=== PATIENT | female | born 1975 | race Two or more races ===

== ENCOUNTER 2019-02-04 09:54 | Emergency (ER) | payer SELFPAY ==
[2019-02-04] MEDS ORDERED: Ondansetron 4 MG/2 ML SDV IVPUSH ONE (10:31)
[2019-02-04] MEDS ORDERED: Sodium Chloride 0.9% 10 ML Syringe FLUSH PRN (10:31)
[2019-02-04] MEDS ORDERED: HYDROmorphone 1 MG/ML Syringe IVPUSH ONE ×2 (10:31→13:48)
[2019-02-04] MEDS ORDERED: Sodium Chloride 0.9% 1,000 ML IV ONE ×2 (10:31→17:14)
--- NOTE | 2019-02-04 10:33 | EDM.PDOC ---
ED HPI GENERAL MEDICAL PROBLEM - General Chief Complaint: Flank Pain Stated Complaint: KIDNEY PAIN Time Seen by Provider: 02/04/19 10:13 Source of Information: Reports: Patient, Family (son) History Limitations: Reports: Language Barrier - History of Present Illness INITIAL COMMENTS - FREE TEXT/NARRATIVE: 43-year-old female presents for evaluation and treatment of right-sided flank, back and abdominal pain. Patient primarily speaks Romansh, translation provided by her son. Current symptoms include low back pain, right-sided flank pain and right lower quadrant abdominal pain. She reports fevers, chills, nausea and hematuria. Denies any vomiting, dysuria. Reportedly the patient has a history of kidney infections and kidney stones. She did take a course 250 mg of ciprofloxacin, that she had at home from [place] last week. Right Flank Pain Score (Numeric/FACES): 8 - Related Data Allergies Allergy/AdvReac Type Severity Reaction Status Date / Time ceftriaxone [From Rocephin] Allergy Itching Verified 02/04/19 17:49 Home Meds: Home Meds Levothyroxine Sodium [Synthroid] 1 tab PO DAILY 02/04/19 [History] Past Medical History Genitourinary History: Reports: Renal Calculus Endocrine/Metabolic History: Reports: Hypothyroidism Social & Family History - Tobacco Use Smoking Status *Q: Never Smoker Second Hand Smoke Exposure: No - Caffeine Use Caffeine Use: Reports: None - Recreational Drug Use Recreational Drug Use: No ED ROS GENERAL - Review of Systems Review Of Systems: See Below Constitutional: Reports: Fever, Chills GI/Abdominal: Reports: Abdominal Pain, Nausea : Reports: Flank Pain Musculoskeletal: Reports: Back Pain ED EXAM, RENAL/ - Physical Exam Exam: See Below Exam Limited By: No Limitations General Appearance: Alert, WD/WN, Mild Distress Respiratory/Chest: No Respiratory Distress, Lungs Clear, Normal Breath Sounds Cardiovascular: Normal Peripheral Pulses, Regular Rate, Rhythm, No Murmur GI/Abdominal: Normal Bowel Sounds, Soft, Tender (Right midabdomen) Back Exam: CVA Tenderness (R) Neurological: Alert, Normal Cognition Psychiatric: Normal Affect, Normal Mood Skin Exam: Warm, Dry, Normal Color Course - Vital Signs Last Recorded V/S: Last Vital Signs Temp 99.5 F 02/04/19 16:16 Pulse 101 H 02/04/19 10:10 Resp 18 02/04/19 10:10 BP 123/80 02/04/19 17:07 Pulse Ox 98 02/04/19 10:10 - Orders/Labs/Meds Labs: Laboratory Tests 02/04/19 02/04/19 02/04/19 Range/Units 10:16 10:16 10:48 WBC 9.78 (3.98-10.04) K/mm3 RBC 4.34 (3.98-5.22) M/mm3 Hgb 13.3 (11.2-15.7) gm/L Hct 39.4 (34.1-44.9) % MCV 90.8 (79.4-94.8) fl MCH 30.6 (25.6-32.2) pg MCHC 33.8 (32.2-35.5) g/dl RDW Std Deviation 43.4 (36.4-46.3) fL Plt Count 219 (182-369) K/mm3 MPV 10.0 (9.4-12.3) fl Neutrophils % (Manual) 79 H (40-60) % Band Neutrophils % 0 (0-10) % Lymphocytes % (Manual) 13 L (20-40) % Atypical Lymphs % 0 % Monocytes % (Manual) 8 (2-10) % Eosinophils % (Manual) 0 L (0.7-5.8) % Basophils % (Manual) 0 L (0.1-1.2) Platelet Estimate Adequate RBC Morph Comment Normal Sodium (136-145) mEq/L Potassium (3.5-5.1) mEq/L Chloride (98-107) mEq/L Carbon Dioxide (21-32) mEq/L Anion Gap (5-15) BUN (7-18) mg/dL Creatinine (0.55-1.02) mg/dL Est Cr Clr Drug Dosing mL/min Estimated GFR (MDRD) (>60) mL/min BUN/Creatinine Ratio (14-18) Glucose (74-106) mg/dL Calcium (8.5-10.1) mg/dL Total Bilirubin (0.2-1.0) mg/dL AST (15-37) U/L ALT (14-59) U/L Alkaline Phosphatase (46-116) U/L C-Reactive Protein (<1.0) mg/dL Total Protein (6.4-8.2) g/dl Albumin (3.4-5.0) g/dl Globulin gm/dL Albumin/Globulin Ratio (1-2) Urine Color Yellow (Yellow) Urine Appearance Slt cloudy H (Clear) Urine pH 6.0 (5.0-8.0) Ur Specific [place] 1.015 (1.005-1.030) Urine Protein Trace H (Negative) Urine Glucose (UA) Negative (Negative) Urine Ketones Negative (Negative) Urine Occult Blood 2+ H (Negative) Urine Nitrite Positive H (Negative) Urine Bilirubin Negative (Negative) Urine Urobilinogen 0.2 (0.2-1.0) Ur Leukocyte Esterase 1+ H (Negative) Urine RBC 30-40 H (0-5) /hpf Urine WBC 30-40 H (0-5) /hpf Ur Epithelial Cells 0-5 (0-5) /hpf Urine Bacteria Many H (FEW) /hpf Urine Mucus Moderate H (FEW) /hpf Urine HCG, Qual Negative (NEGATIVE) C trachomatis DNA (PCR) N gonorrhoeae DNA (PCR) 02/04/19 02/04/19 Range/Units 10:48 14:00 WBC (3.98-10.04) K/mm3 RBC (3.98-5.22) M/mm3 Hgb (11.2-15.7) gm/L Hct (34.1-44.9) % MCV (79.4-94.8) fl MCH (25.6-32.2) pg MCHC (32.2-35.5) g/dl RDW Std Deviation (36.4-46.3) fL Plt Count (182-369) K/mm3 MPV (9.4-12.3) fl Neutrophils % (Manual) (40-60) % Band Neutrophils % (0-10) % Lymphocytes % (Manual) (20-40) % Atypical Lymphs % % Monocytes % (Manual) (2-10) % Eosinophils % (Manual) (0.7-5.8) % Basophils % (Manual) (0.1-1.2) Platelet Estimate RBC Morph Comment Sodium 137 (136-145) mEq/L Potassium 3.9 (3.5-5.1) mEq/L Chloride 102 (98-107) mEq/L Carbon Dioxide 25 (21-32) mEq/L Anion Gap 13.9 (5-15) BUN 14 (7-18) mg/dL Creatinine 0.8 (0.55-1.02) mg/dL Est Cr Clr Drug Dosing 67.01 mL/min Estimated GFR (MDRD) > 60 (>60) mL/min BUN/Creatinine Ratio 17.5 (14-18) Glucose 100 (74-106) mg/dL Calcium 8.7 (8.5-10.1) mg/dL Total Bilirubin 0.4 (0.2-1.0) mg/dL AST 16 (15-37) U/L ALT 31 (14-59) U/L Alkaline Phosphatase 64 (46-116) U/L C-Reactive Protein 13.7 H* (<1.0) mg/dL Total Protein 7.9 (6.4-8.2) g/dl Albumin 3.4 (3.4-5.0) g/dl Globulin 4.5 gm/dL Albumin/Globulin Ratio 0.8 L (1-2) Urine Color (Yellow) Urine Appearance (Clear) Urine pH (5.0-8.0) Ur Specific [place] (1.005-1.030) Urine Protein (Negative) Urine Glucose (UA) (Negative) Urine Ketones (Negative) Urine Occult Blood (Negative) Urine Nitrite (Negative) Urine Bilirubin (Negative) Urine Urobilinogen (0.2-1.0) Ur Leukocyte Esterase (Negative) Urine RBC (0-5) /hpf Urine WBC (0-5) /hpf Ur Epithelial Cells (0-5) /hpf Urine Bacteria (FEW) /hpf Urine Mucus (FEW) /hpf Urine HCG, Qual (NEGATIVE) C trachomatis DNA (PCR) Not detected N gonorrhoeae DNA (PCR) Not detected Meds: Medications Discontinued Medications Generic Name Dose Route Start Last Admin Trade Name Freq PRN Reason Stop Dose Admin Acetaminophen 650 mg 02/04/19 14:28 02/04/19 14:31 Tylenol PO 02/04/19 14:29 650 mg NOW ONE Administration Diphenhydramine HCl 50 mg 02/04/19 17:13 02/04/19 17:19 Benadryl IVPUSH 02/04/19 17:14 50 mg ONETIME ONE Administration Doxycycline Hyclate 200 mg 02/04/19 17:38 Vibramycin PO 02/04/19 17:39 ONETIME ONE Famotidine 20 mg 02/04/19 17:13 02/04/19 17:22 Pepcid IVPUSH 02/04/19 17:14 20 mg ONETIME ONE Administration Hydromorphone HCl 1 mg 02/04/19 10:31 02/04/19 10:50 Dilaudid IVPUSH 02/04/19 10:32 1 mg ONETIME ONE Administration Hydromorphone HCl 1 mg 02/04/19 13:48 02/04/19 13:59 Dilaudid IVPUSH 02/04/19 13:49 1 mg ONETIME ONE Administration Sodium Chloride 1,000 mls @ 999 mls/hr 02/04/19 10:31 02/04/19 10:49 Normal Saline IV 02/04/19 11:31 999 mls/hr ONETIME ONE Administration Ceftriaxone Sodium 2 gm/ 100 mls @ 200 mls/hr 02/04/19 16:45 02/04/19 17:06 Sodium Chloride IV Not Given Q24H ZABRINA Ceftriaxone Sodium 2 gm/ 100 mls @ 200 mls/hr 02/04/19 17:02 02/04/19 17:04 Sodium Chloride IV 02/04/19 17:31 200 mls/hr NOW STA Administration Sodium Chloride 1,000 mls @ 999 mls/hr 02/04/19 17:14 02/04/19 17:28 Normal Saline IV 02/04/19 18:14 999 mls/hr ONETIME ONE Administration Ketorolac Tromethamine 30 mg 02/04/19 17:13 02/04/19 17:25 Toradol IVPUSH 02/04/19 17:14 30 mg ONETIME ONE Administration Methylprednisolone Sodium Succinate 125 mg 02/04/19 17:14 02/04/19 17:20 Solu-Medrol IVPUSH 02/04/19 17:15 125 mg ONETIME ONE Administration Ondansetron HCl 4 mg 02/04/19 10:31 02/04/19 10:50 Zofran IVPUSH 02/04/19 10:32 4 mg ONETIME ONE Administration Sodium Chloride 10 ml 02/04/19 10:31 02/04/19 10:51 Saline Flush FLUSH 10 ml ASDIRECTED PRN Administration Keep Vein Open - Radiology Interpretation Free Text/Narrative:: CT of the abdomen and plevis impression with contrast impression per vrad: Fat stranding is noted in the right adnexal recently may be secondary to inflammatory changes. Further evaluation is recommended with pelvic ultrasound. Fat filled umbilical hernia is present. Small amount of fluid is noted within the pelvis. Multiple calcified gallstones are present. 4.2 partially calcified cyst left adnexal region. Transvaginal ultrasound impression per Vrad: bilateral ovarian cyst. No intrauterine masses. Blood flow is noted to both ovaries bilaterally. Free fluid is is noted in cul-de-sac. - Re-Assessments/Exams Free Text/Narrative Re-Assessment/Exam: 02/04/19 17:[address] were initially obtained, due to the inflammatory changes around the right adnexa pelvic ultrasound was then obtained. 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 He did not feel there anything more than a complicated Urinary tract infection going on. Recommended considering doxycycline to also cover for PID. I did give the patient some Rocephin but she immediately started to feel i and reported she felt as if her throat was swelling. She was given Solu-Medrol, Benadry and Pepcid. The Rocephin was stopped. Her symptoms resolved after a few minutes with these medications in the Rocephin stopped. We will put her on Doxycycline. Should cover for urinary tract infection as well as for PID. Departure - Departure Time of Disposition: 17:58 Disposition: Home, Self-Care 01 Condition: Fair Clinical Impression: UTI, Urinary tract infectious disease - Discharge Information *PRESCRIPTION DRUG MONITORING PROGRAM REVIEWED*: No *COPY OF PRESCRIPTION DRUG MONITORING REPORT IN PATIENT NASEEM: No Instructions: Urinary Tract Infection, Adult Referrals: Camryn Virk PA-C [Primary Care Provider] - Forms: ED Department Discharge Additional Instructions: You had a reaction to rocephin (ceftriaxone) today in the ER. May take benadryl 25 - 50mg PO every 6 hours as needed for itchiness and hives. Take the doxycycline as prescribed. 1 Twice a day for 14 days. [id number] ibuprofen as needed for pain. Do not take more than 3200 mg of ibuprofen from all sources in 1 day, 600-800mg PO every 6-8 hours. For pain not relieved by ibuprofen you may take [place] one or 2 tabs every 4-6 hours. [place] is habit-forming, take as few of these as needed to control your pain. Do not drive or operate machinery within 12 hours of taking [place]. There is tylenol in [place]. Make sure you are drinking plenty of fluids. Follow-up with Camryn virk on Wednesday or Wednesday of this week for recheck of your symptoms. Please return to the ER for symptoms change or worsen.
[2019-02-04] MEDS ORDERED: Acetaminophen 325 MG Tab PO ONE (14:28)
[2019-02-04 15:42] LABS: C. TRACHOMATIS BY PCR NOT DETECTED; N. GONORRHOEAE BY PCR NOT DETECTED
[2019-02-04] MEDS ORDERED: cefTRIAXone 2 GM in Sodium Chloride 0.9% 100 ML IV SCH (16:45)
[2019-02-04] MEDS ORDERED: cefTRIAXone 2 GM in Sodium Chloride 0.9% 100 ML IV STA (17:02)
[2019-02-04] MEDS ORDERED: Ketorolac 30 MG/ML SDV IVPUSH ONE (17:13)
[2019-02-04] MEDS ORDERED: diphenhydrAMINE 50 MG/ML SDV IVPUSH ONE (17:13)
[2019-02-04] MEDS ORDERED: Famotidine 20 MG/2 ML SDV IVPUSH ONE (17:13)
[2019-02-04] MEDS ORDERED: methylPREDNISolone Sodium Succinate 125 MG/2 ML SDV IVPUSH ONE (17:14)
[2019-02-04] MEDS ORDERED: Doxycycline 100 MG Cap PO ONE (17:38)
--- NOTE | 2019-02-07 08:09 | CT ---
CT abdomen and pelvis Technique: Multiple axial sections were obtained from above the dome of the diaphragm inferiorly through the pubic symphysis. Intravenous contrast and oral contrast not given. Comparison: No prior abdominal imaging. Findings: Lung bases show mild fibrosis and scarring. Noncontrast appearance of the liver and spleen appears within normal limits. Adrenal glands show no nodule. Gallbladder contains at least two gallstones. Kidneys show no abnormal calcifications. No ureteral dilatation or ureteral stone is seen. Pancreas appears within normal limits. Aorta shows no aneurysm. No retroperitoneal adenopathy is seen. No mesenteric abnormalities are seen. Appendix is not definitely visualized. Cyst is noted within the left ovary containing a small wall calcification. This cyst measures 4.7 cm in size and has simple fluid Hounsfield unit measurements. No free fluid or inflammatory change is seen. Bone window settings were reviewed which appear within normal limits for the patient's age. Incidental note of fat-containing umbilical hernia. Impression: 1. At least two gallstones. 2. 4.7 cm simple cyst within the left ovary. 3. No renal calculi, ureteral dilatation or ureteral stone is seen. 4. Other incidental findings. Diagnostic code #3 I agree with preliminary report from [facility], finalized on 02/04/19, 1:57 PM Central Time
--- NOTE | 2019-02-07 09:03 | US ---
Pelvic ultrasound: Multiple real-time images were obtained transvaginally. Comparison: Previous CT abdomen and pelvis study performed earlier on same day (11:53 AM). Cyst is noted within the left ovary measuring 3.8 x 4.0 x 4.2 cm. Small physiologic cyst measuring 1.6 cm seen within the right ovary. Minimal free fluid is seen within the cul-de-sac believed to be physiologic. Uterus is retroverted. No myometrial abnormality is seen. Endometrial thickness is normal at 1.2 cm. Measurements: Uterus: Length 8.5 cm, AP height 5.3 cm, transverse width 5.6 cm Right ovary: 3.1 x 2.6 x 3.4 cm Left ovary: 4.6 x 4.5 x 4.5 cm Impression: 1. Simple cyst within the left ovary measuring up to 4.2 cm. This correlates to cyst seen on recent CT exam. Follow-up pelvic ultrasound could be considered in 3-4 months to evaluate for resolution. 2. Other incidental findings as noted above. Diagnostic code #3 I agree with preliminary report from [facility], finalized on 02/04/19, 5:05 PM Central Time
== END 2019-02-04 18:15 | disposition home or self-care (01) ==
LOC: JD.ED 09:54
DX: N39.0 Urinary tract infection, site not specified (principal); E03.9 Hypothyroidism, unspecified; Z79.899 Other long term (current) drug therapy; Z88.1 Allergy status to other antibiotic agents
CPT/HCPCS: 36415; 74176; 76830; 80053; 81001; 81025; 85007; 85027; 86140; 87086; 87088; 87186; 87491; 87591; 96361; 96374; 96375; 96376; 99284; A9270; J0696; J1170; J1200; J1885; J2405; J2930; J3490; J7030; J7040; 99283

== ENCOUNTER 2020-09-23 18:18 | Emergency (ER) | payer BC ==
--- NOTE | 2020-09-23 18:48 | EDM.PDOC ---
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 This started yesterday. She has no vagina l bleeding. She has no pain with urination. She has no abdominal pain, nausea, vomiting, fever, chills, cough, chest pain, shortness of breath or diarrhea. She has no medical problems. She has no flank pain. She does not smoke and she is not around any diesel full. Onset: Gradual Duration: Day(s): (Yesterday) Improves with: Reports: None Worsens with: Reports: None Associated Symptoms: Reports: No Other Symptoms - Related Data Allergies Allergy/AdvReac Type Severity Reaction Status Date / Time ceftriaxone [From Rocephin] Allergy Severe Itching Verified 09/23/20 18:51 Home Meds: Home Meds Levothyroxine [Synthroid] 100 mcg PO ACBREAKFAST 09/23/20 [History] Nitrofurantoin Monohyd/M-Cryst [Macrobid 100 mg Capsule] 100 mg PO BID #10 capsule 09/23/20 [Rx] ED ROS GENERAL - Review of Systems Review Of Systems: See Below Constitutional: Reports: No Symptoms HEENT: Reports: No Symptoms Respiratory: Reports: No Symptoms Cardiovascular: Reports: No Symptoms Endocrine: Reports: No Symptoms GI/Abdominal: Reports: No Symptoms : Reports: Hematuria. Denies: Dysuria, Flank Pain, Frequency ED EXAM, RENAL/ - Physical Exam Exam: See Below Exam Limited By: No Limitations General Appearance: Alert, No Apparent Distress Ears: Normal External Exam Nose: Normal Inspection Head: Atraumatic, Normocephalic Neck: Normal Inspection Respiratory/Chest: No Respiratory Distress, Lungs Clear, Normal Breath Sounds Cardiovascular: Regular Rate, Rhythm, No Edema, No Murmur GI/Abdominal: Soft, Non-Tender, No Organomegaly, No Mass Back Exam: Normal Inspection Extremities: Normal Inspection Course - Vital Signs Last Recorded V/S: Last Vital Signs Temp 98.2 F 09/23/20 18:33 Pulse 90 09/23/20 18:33 Resp 16 09/23/20 18:33 BP 134/100 H 09/23/20 18:33 Pulse Ox 97 09/23/20 18:33 - Orders/Labs/Meds Orders: Active Orders 24 hr Category Date Time Status CULTURE URINE [RM] Stat Lab 09/23/20 18:50 Received Labs: Laboratory Tests 09/23/20 09/23/20 09/23/20 Range/Units 18:50 18:54 18:54 WBC 9.35 (3.98-10.04) K/mm3 RBC 4.53 (3.98-5.22) M/mm3 Hgb 14.1 (11.2-15.7) gm/dl Hct 42.1 (34.1-44.9) % MCV 92.9 (79.4-94.8) fl MCH 31.1 (25.6-32.2) pg MCHC 33.5 (32.2-35.5) g/dl RDW Std Deviation 43.3 (36.4-46.3) fL Plt Count 265 (182-369) K/mm3 MPV 10.3 (9.4-12.3) fl Neut % (Auto) 59.1 (34.0-71.1) % Lymph % (Auto) 32.3 (19.3-51.7) % [place] % (Auto) 6.2 (4.7-12.5) % Eos % (Auto) 2.1 (0.7-5.8) Baso % (Auto) 0.2 (0.1-1.2) % Neut # (Auto) 5.52 (1.56-6.13) K/mm3 Lymph # (Auto) 3.02 (1.18-3.74) K/mm3 [place] # (Auto) 0.58 H (0.24-0.36) K/mm3 Eos # (Auto) 0.20 (0.04-0.36) K/mm3 Baso # (Auto) 0.02 (0.01-0.08) K/mm3 PT 10.5 (9.7-12.0) SECONDS INR 0.98 APTT 25.9 (21.7-31.4) SECONDS D-Dimer, Quantitative 0.25 (0.19-0.50) mg/L Sodium (136-145) mEq/L Potassium (3.5-5.1) mEq/L Chloride (98-107) mEq/L Carbon Dioxide (21-32) mEq/L Anion Gap (5-15) BUN (7-18) mg/dL Creatinine (0.55-1.02) mg/dL Est Cr Clr Drug Dosing Estimated GFR (MDRD) (>60) mL/min BUN/Creatinine Ratio (14-18) Glucose (74-106) mg/dL Calcium (8.5-10.1) mg/dL Total Bilirubin (0.2-1.0) mg/dL AST (15-37) U/L ALT (14-59) U/L Alkaline Phosphatase (46-116) U/L Total Protein (6.4-8.2) g/dl Albumin (3.4-5.0) g/dl Globulin gm/dL Albumin/Globulin Ratio (1-2) HCG, Qual (NEGATIVE) Urine Color [place] (Yellow) Urine Appearance Slt cloudy H (Clear) Urine pH 8.0 (5.0-8.0) Ur Specific [place] 1.025 (1.005-1.030) Urine Protein 1+ H (Negative) Urine Glucose (UA) Negative (Negative) Urine Ketones Negative (Negative) Urine Occult Blood 3+ H (Negative) Urine Nitrite Positive H (Negative) Urine Bilirubin Negative (Negative) Urine Urobilinogen 1.0 (0.2-1.0) Ur Leukocyte Esterase Trace H (Negative) Urine RBC >100 H (0-5) /hpf Urine WBC 5-10 H (0-5) /hpf Ur Squamous Epith Cells 0-5 (0-5) /hpf Urine Bacteria Many H (FEW) /hpf Urine Mucus Not seen (FEW) /hpf 09/23/20 09/23/20 Range/Units 18:54 18:54 WBC (3.98-10.04) K/mm3 RBC (3.98-5.22) M/mm3 Hgb (11.2-15.7) gm/dl Hct (34.1-44.9) % MCV (79.4-94.8) fl MCH (25.6-32.2) pg MCHC (32.2-35.5) g/dl RDW Std Deviation (36.4-46.3) fL Plt Count (182-369) K/mm3 MPV (9.4-12.3) fl Neut % (Auto) (34.0-71.1) % Lymph % (Auto) (19.3-51.7) % [place] % (Auto) (4.7-12.5) % Eos % (Auto) (0.7-5.8) Baso % (Auto) (0.1-1.2) % Neut # (Auto) (1.56-6.13) K/mm3 Lymph # (Auto) (1.18-3.74) K/mm3 [place] # (Auto) (0.24-0.36) K/mm3 Eos # (Auto) (0.04-0.36) K/mm3 Baso # (Auto) (0.01-0.08) K/mm3 PT (9.7-12.0) SECONDS INR APTT (21.7-31.4) SECONDS D-Dimer, Quantitative (0.19-0.50) mg/L Sodium 140 (136-145) mEq/L Potassium 3.9 (3.5-5.1) mEq/L Chloride 103 (98-107) mEq/L Carbon Dioxide 29 (21-32) mEq/L Anion Gap 11.9 (5-15) BUN 14 (7-18) mg/dL Creatinine 0.7 (0.55-1.02) mg/dL Est Cr Clr Drug Dosing TNP Estimated GFR (MDRD) > 60 (>60) mL/min BUN/Creatinine Ratio 20.0 H (14-18) Glucose 117 H (74-106) mg/dL Calcium 9.2 (8.5-10.1) mg/dL Total Bilirubin 0.2 (0.2-1.0) mg/dL AST 12 L (15-37) U/L ALT 21 (14-59) U/L Alkaline Phosphatase 64 (46-116) U/L Total Protein 8.4 H (6.4-8.2) g/dl Albumin 4.1 (3.4-5.0) g/dl Globulin 4.3 gm/dL Albumin/Globulin Ratio 1.0 (1-2) HCG, Qual Negative (NEGATIVE) Urine Color (Yellow) Urine Appearance (Clear) Urine pH (5.0-8.0) Ur Specific [place] (1.005-1.030) Urine Protein (Negative) Urine Glucose (UA) (Negative) Urine Ketones (Negative) Urine Occult Blood (Negative) Urine Nitrite (Negative) Urine Bilirubin (Negative) Urine Urobilinogen (0.2-1.0) Ur Leukocyte Esterase (Negative) Urine RBC (0-5) /hpf Urine WBC (0-5) /hpf Ur Squamous Epith Cells (0-5) /hpf Urine Bacteria (FEW) /hpf Urine Mucus (FEW) /hpf - Re-Assessments/Exams Free Text/Narrative Re-Assessment/Exam: 09/23/20 18:48 I ordered labs, UA and CT of her abdomen and pelvis. 09/23/20 19:49 Her CBC and CMP look good. Her HCG is negative. Her UA shows a UTI. I have sent it for culture. Her CT shows several nonobstructing calculi within both kidneys. No ureteral dilatation or ureteral stone is appreciated. Cyst within he left ovary measuring 5.3cm. Recommend ultrasound study in 6 months to make sure this does not persist. IUD is present within the uterus. Small calcified gallstone within the gallbladder measuring about 8mm. I will get her on some keflex. Departure - Departure Time of Disposition: 19:55 Disposition: Home, Self-Care 01 Condition: Good Clinical Impression: Kidney stones, Left ovarian cyst UTI (urinary tract infection) Qualifiers: Urinary tract infection type: acute cystitis Hematuria presence: with hematuria Qualified Code(s): N30.01 - Acute cystitis with hematuria - Discharge Information Prescriptions: Nitrofurantoin Monohyd/M-Cryst [Macrobid 100 mg Capsule] 100 mg PO BID #10 capsule Referrals: Camryn Virk PA-C [Primary Care Provider] - 1 Week Forms: ED Department Discharge Additional Instructions: Drink plenty of fluids. Take the macrobid 2 times per day for 5 days. Follow u p with your doctor within a week. Please return if you are worse. Sepsis Event Note (ED) - Evaluation Sepsis Screening Result: No Definite Risk - Focused Exam Vital Signs: Vital Signs Temp Pulse Resp BP Pulse Ox 09/23/20 18:33 98.2 F 90 16 134/100 H 97 - My Orders Last 24 Hours: My Active Orders 09/23/20 18:50 CULTURE URINE [RM] Stat - Assessment/Plan Last 24 Hours: My Active Orders 09/23/20 18:50 CULTURE URINE [RM] Stat
--- NOTE | 2020-09-23 19:33 | CT ---
CT abdomen and pelvis Technique: Multiple axial sections were obtained from above the dome of the diaphragm inferiorly through the pubic symphysis. Intravenous and oral contrast was not utilized. Study was performed as a ureteral stone protocol. Reconstructed coronal and sagittal images were obtained. Comparison: No prior studies available. Findings: Visualized lung bases show nothing acute. Three or four small nonobstructing calculi are seen within the right kidney. Largest stone measures approximately 4.4 mm. Small fatty lesion is seen within the upper left kidney measuring about 1.1 cm compatible with an angiomyolipoma. Small nonobstructing stone is noted within the upper left kidney. No ureteral dilatation or ureteral stone is appreciated. Liver shows a small calcification within the dome of the left lobe measuring approximately 6.9 mm which is most likely due to a benign granuloma. No additional abnormality is seen within the liver. Spleen appears normal. Right and left adrenal gland show no nodule or mass. Gallbladder is mostly collapsed and shows a partially calcified gallstone measuring approximately 8 mm. Pancreas shows no discrete abnormality. Aorta shows no aneurysm. No retroperitoneal adenopathy or mesenteric abnormalities are seen. Small fat-containing umbilical hernia is present. Cyst is noted within the left ovary measuring 5.3 cm in size. No free fluid is seen within the pelvis. No bladder calculi are appreciated. IUD is present within the uterus. Appendix is seen which is normal in size. Bone window settings were reviewed and appear within normal limits for the patient's age. Small calcified granuloma is noted within the left buttock fat. Impression: 1. Several nonobstructing calculi within both kidneys. No ureteral dilatation or ureteral stone is appreciated. 2. Cyst within the left ovary measuring 5.3 cm. Recommend ultrasound study in 6 months to make sure this does not persist. 3. IUD is present within the uterus. 4. Small calcified gallstone within the gallbladder measuring about 8 mm. Diagnostic code #3
== END 2020-09-23 20:03 | disposition home or self-care (01) ==
LOC: JD.ED 18:18 → MERGE 18:18 → JD.ED 20:03
DX: N30.01 Acute cystitis with hematuria (principal); N83.202 Unspecified ovarian cyst, left side; N20.0 Calculus of kidney; Z88.1 Allergy status to other antibiotic agents; Z79.899 Other long term (current) drug therapy
CPT/HCPCS: 36415; 74176; 74176-26; 80053; 81001; 84703; 85025; 85379; 85610; 85730; 87086; 87088; 87186; 99284; 99284-25